=== PATIENT | male | born 1965 | race Caucasian/White ===

== ENCOUNTER 2019-08-24 02:47 | Emergency (ER) | payer OTHER ==
[~2019-08-24] VITALS: Ht 182.9 cm; Wt 65.9 kg
[2019-08-24] MEDS ORDERED: IV NORMAL SALINE 1000ML BAG 1,000 ML IV SCH (03:15)
[2019-08-24 03:21] LABS: BASO # 0.1 x10^3/uL (0.0-0.2); BASO % 1 % (0-3); EOS # 0.2 x10^3/uL (0.0-0.7); EOS % 2 % (0-3); HEMATOCRIT 56.9 % (39.0-53.0); HEMOGLOBIN 19.3 g/dL (13.0-17.5); LYMPH # 2.4 x10^3/uL (1.0-4.8); LYMPH % 29 % (24-48); MEAN CORPUSCULAR HEMOGLOBIN 30 pg (25-35); MEAN CORPUSCULAR HGB CONC 34 g/dL (31-37); MEAN CORPUSCULAR VOLUME 88 fL (79-100); MONO # 0.8 x10^3/uL (0.0-1.1); MONO % 10 % (0-9); NEUT # 4.9 x10^3/uL (1.8-7.7); NEUT % 58 % (31-73); PLATELET COUNT 185 x10^3/uL (140-400); RED BLOOD COUNT 6.48 x10^6/uL (4.30-5.70); RED CELL DISTRIBUTION WIDTH 14.2 % (11.5-14.5); WHITE BLOOD COUNT 8.4 x10^3/uL (4.0-11.0)
[2019-08-24] MEDS ORDERED: ALBUTEROL SULFATE 2.5 MG/3 ML NEBU. NEB ONE (03:30)
[2019-08-24] MEDS ORDERED: methylPREDNISolone SOD SUCC PF 125 MG/2 ML VIAL. IV ONE (03:30)
[2019-08-24] MEDS ORDERED: IPRATRPIUM/ALBUTEROL 0.5/2.5MG 3 ML NEBU. NEB ONE (03:30)
--- NOTE | 2019-08-24 03:50 | RAD ---
PORTABLE CHEST 1V Clinical Indication: Shortness of breath Comparison: None. Findings: The cardiomediastinal silhouette is normal. There is a 9 mm nodule in the right midlung that may be a calcified granuloma. The nodule is not definitively calcified. Lungs are otherwise clear. The lungs may be hyperexpanded. There is no pneumothorax. No pleural effusion is appreciated. No acute bone abnormality. IMPRESSION: 1. No acute cardiopulmonary process. 2. There is a 9 mm right midlung nodule. Electronically signed by: Berto Marroquin MD (08/24/2019 3:47 AM) [id number]
[2019-08-24 04:16] LABS: CALCIUM 8.4 mg/dL (8.5-10.1); CREATININE 0.8 mg/dL (0.7-1.3); GFR 101.1; POTASSIUM 3.9 mmol/L (3.5-5.1)
[2019-08-24 04:21] LABS: ALBUMIN 3.3 g/dL (3.4-5.0); ALBUMIN/GLOBULIN RATIO 0.9 (1.0-1.7); TOTAL BILIRUBIN 0.8 mg/dL (0.2-1.0); TOTAL PROTEIN 6.9 g/dL (6.4-8.2)
--- NOTE | 2019-08-24 04:21 | PHYS DOC ---
Past Medical History Past Medical History: COPD Smoking Status: Current Every Day Smoker Additional Information: 1 PPD X 39 YEARS Alcohol Use: None General Adult EDM: Chief Complaint: COUGH HPI: HPI: Patient is a 53 year old male who presents with complaint of cough and shortness of breath with body aches for the last 3 days. Patient denies any fever. He states that the cough is been intermittently productive of small amount of green sputum. He states symptoms are progressively getting worse and he has been feeling increasing shortness of breath with exertion. Patient has had no chest pain.[] Review of Systems: Review of Systems: Constitutional: Denies fever or chills. [] Respiratory: Complains of cough and shortness of breath. [] Cardiovascular: Denies chest pain or edema. [] GI: Denies abdominal pain, nausea, vomiting, bloody stools or diarrhea. [] Neurologic: Denies headache, focal weakness or sensory changes. [] A full 10 point review of systems has been reviewed and is otherwise negative except as noted on history of present illness. Heart Score: Risk Factors: Risk Factors: DM, Current or recent (<one month) smoker, HTN, HLP, family history of CAD, obesity. Risk Scores: Score 0 - 3: 2.5% MACE over next 6 weeks - Discharge Home Score 4 - 6: 20.3% MACE over next 6 weeks - Admit for Clinical Observation Score 7 - 10: 72.7% MACE over next 6 weeks - Early Invasive Strategies Current Medications: Current Medications Medications (Trade) Dose Ordered Sig/Timi Start Time Stop Time Status Last Admin Dose Admin Albuterol Sulfate (Ventolin Neb Soln) 7.5 mg 1X ONCE 08/24/19 03:30 08/24/19 03:31 DC Albuterol/ Ipratropium (Duoneb) 3 ml 1X ONCE 08/24/19 03:30 08/24/19 03:31 DC Methylprednisolone Sodium Succinate (SOLU-Medrol 125MG VIAL) 125 mg 1X ONCE 08/24/19 03:30 08/24/19 03:31 DC 08/24/19 03:42 125 MG Sodium Chloride 1,000 ml @ 1,000 mls/hr Q1H 08/24/19 03:15 08/24/19 04:14 08/24/19 03:42 1,000 MLS/HR Allergies: Allergies: Allergies Coded Allergies Type Severity Reaction Last Updated Verified No Known Drug Allergies 08/24/19 No Physical Exam: PE: Constitutional: Well developed, well nourished, no acute distress, non-toxic appearance. [] HENT: Normocephalic, atraumatic, bilateral external ears normal, oropharynx moist, no oral exudates, nose normal. [] Eyes: PERRLA, EOMI, conjunctiva normal, no discharge. [] Neck: Normal range of motion, no tenderness, supple, no stridor. [] Cardiovascular: Regular rate and rhythm[] Lungs & Thorax: Diminished breath sounds are noted bilaterally with coarse inspiratory and expiratory wheezes to auscultation [] Abdomen: Bowel sounds normal, soft, no tenderness. [] Skin: Warm, dry, no erythema, no rash. [] Extremities: No tenderness, no cyanosis, no clubbing, ROM intact, no edema. [] Neurologic: Alert and oriented X 3, no focal deficits noted. [] Current Patient Data: Labs: Laboratory Tests Test 08/24/19 03:05 White Blood Count 8.4 x10^3/uL (4.0-11.0) Red Blood Count 6.48 x10^6/uL (4.30-5.70) H Hemoglobin 19.3 g/dL (13.0-17.5) H Hematocrit 56.9 % (39.0-53.0) H Mean Corpuscular Volume 88 fL (79-100) Mean Corpuscular Hemoglobin 30 pg (25-35) Mean Corpuscular Hemoglobin Concent 34 g/dL (31-37) Red Cell Distribution Width 14.2 % (11.5-14.5) Platelet Count 185 x10^3/uL (140-400) Neutrophils (%) (Auto) 58 % (31-73) Lymphocytes (%) (Auto) 29 % (24-48) Monocytes (%) (Auto) 10 % (0-9) H Eosinophils (%) (Auto) 2 % (0-3) Basophils (%) (Auto) 1 % (0-3) Neutrophils # (Auto) 4.9 x10^3/uL (1.8-7.7) Lymphocytes # (Auto) 2.4 x10^3/uL (1.0-4.8) Monocytes # (Auto) 0.8 x10^3/uL (0.0-1.1) Eosinophils # (Auto) 0.2 x10^3/uL (0.0-0.7) Basophils # (Auto) 0.1 x10^3/uL (0.0-0.2) Laboratory Tests 08/24/19 03:05 Vital Signs: Vital Signs Date Time Temp Pulse Resp B/P (MAP) Pulse Ox O2 Delivery O2 Flow Rate FiO2 08/24/19 03:16 98.2 84 25 157/102 (120) 100 Room Air 98.2 EKG: EKG: [] Radiology/Procedures: Radiology/Procedures: [] Impression: PROCEDURE: PORTABLE CHEST 1V PORTABLE CHEST 1V Clinical Indication: Shortness of breath Comparison: None. Findings: The cardiomediastinal silhouette is normal. There is a 9 mm nodule in the right midlung that may be a calcified granuloma. The nodule is not definitively calcified. Lungs are otherwise clear. The lungs may be hyperexpanded. There is no pneumothorax. No pleural effusion is appreciated. No acute bone abnormality. IMPRESSION: 1. No acute cardiopulmonary process. 2. There is a 9 mm right midlung nodule. Electronically signed by: Berto Marroquin MD (08/24/2019 3:47 AM) [id number] Course & Med Decision Making: Course & Med Decision Making Pertinent Labs and Imaging studies reviewed. (See chart for details) [] Dragon Disclaimer: Dragelijah Disclaimer: This electronic medical record was generated, in whole or in part, using a voice recognition dictation system. Departure Departure Impression: Primary Impression: Acute bronchitis with bronchospasm Disposition: HOME, SELF-CARE Condition: STABLE Patient Instructions: Acute Bronchitis, Bronchospasm, Adult Scripts Azithromycin (ZITHROMAX) 250 Mg Tablet 1 PKG PO UD, #6 TAB Prov: ABELARDO KELLY Jr. DO 08/24/19 Methylprednisolone (MEDROL) 4 Mg Tab.ds.pk 1 PKG PO UD, #1 PKG Prov: ABELARDO KELLY Jr. DO 08/24/19 ABELARDO KELLY Jr. DO August 24, 2019 04:21
[2019-08-24] MEDS ORDERED: AZIT250T PO (05:15)
[2019-08-24] MEDS ORDERED: METH4TAB2 PO (05:15)
[2019-08-24 05:30] VITALS: BP 136/85
[2019-08-24] MEDS ORDERED: AZITHROMYCIN 250 MG TABLET. PO ONE (05:30)
== END 2019-08-24 06:00 | disposition home or self-care (01) ==
LOC: ER 02:47
DX: J98.01 Acute bronchospasm (principal); R06.02 Shortness of breath; R05 Cough; J44.9 Chronic obstructive pulmonary disease, unspecified; F17.200 Nicotine dependence, unspecified, uncomplicated
CPT/HCPCS: 36415; 71045; 80053; 83880; 84484; 85025; 87040; 94640; 96374; 99284; J2930; J7030; 94644; J7613